=== PATIENT | male | born 1995 | race African-American/Black ===

== ENCOUNTER 2018-12-17 22:17 | Emergency (ER) | payer OTHER ==
[~2018-12-17] VITALS: Ht 170.2 cm; Wt 70.5 kg
[2018-12-17] MEDS ORDERED: IBUPROFEN 800 MG TAB PO ONE (23:30)
[2018-12-17] MEDS ORDERED: ONDANSETRON 4 MG ORAL DISINTEGRATING TAB (Q0162 PER 1MG) PO ONE (23:30)
[2018-12-17] MEDS ORDERED: ONDA4TAB6 PO (23:49)
[2018-12-17] MEDS ORDERED: IBUP80TA PO (23:49)
[2018-12-17 23:52] VITALS: BP 125/69
[2018-12-18 00:02] LABS: INFLUENZA A AMPLIFICATION POSITIVE (NEGATIVE); INFLUENZA B AMPLIFICATION NEGATIVE (NEGATIVE)
== END 2018-12-18 00:04 | disposition home or self-care (01) ==
LOC: M ED 22:17
DX: B34.9 Viral infection, unspecified (principal)
CPT/HCPCS: 87502; 99283; Q0162